=== PATIENT | male | born 1995 | race Caucasian/White ===

== ENCOUNTER → 2021-10-30 11:18 | Outpatient (CLI) | payer OTHER, SELFPAY | PROVIDERS: Visit Provider Nurse Practitioner | DX: Z20.822 Contact with and (suspected) exposure to COVID-19 (principal) | CPT/HCPCS: C9803; U0003; U0005 ==

== ENCOUNTER 2021-11-08 21:42 | Emergency (ER) | payer OTHER, SELFPAY ==
[2021-11-08 21:46] VITALS: BP 158/68; PULSE 99; RESP 20; TEMP 37.8; O2SAT 100; BMI 34.0
[2021-11-08 22:07] VITALS: BP 158/68; PULSE 87; O2SAT 99
--- NOTE | 2021-11-08 22:13 | XR_ITS ---
PROCEDURE INFORMATION: Exam: XR Chest Exam date and time: 11/08/2021 10:13 PM Age: 26 years old Clinical indication: Cough TECHNIQUE: Imaging protocol: XR of the chest. Views: 2 views. COMPARISON: No relevant prior studies available. FINDINGS: Lungs: Unremarkable. No consolidation. Pleural spaces: Unremarkable. No pleural effusion. No pneumothorax. Heart/Mediastinum: Unremarkable. No cardiomegaly. Bones/joints: Unremarkable. IMPRESSION: No acute findings.
[2021-11-08 22:16] LABS: Influenza A, PCR Not Detected (NotDetected); Influenza B, PCR Not Detected (NotDetected)
[2021-11-08 22:19] LABS: Basophils # 0.2 K/mm3 (0-0.2); Basophils % 5.4 % (0.1-2.0); Hematocrit 50.5 % (42.0-52.0); Hemoglobin 16.4 g/dL (14.1-18.0); Lymphocytes # 1.5 K/mm3 (0.7-4.5); Lymphocytes % 36.8 % (10-50); Mean Corpuscular HGB Conc 32.5 g/dL (31.8-35.4); Mean Corpuscular Hemoglobin 31.6 pg (27.0-31.2); Mean Corpuscular Volume 97.4 fl (80-94); Mean Platelet Volume 11.2 fl (7.4-10.4); Monocytes # 0.7 K/mm3 (0.1-1.0); Monocytes % 16.7 % (1.7-9.3); Neutrophils # 1.9 K/mm3 (1.8-7.8); Neutrophils % 46.4 % (37.0-80.0); Platelet Count 107 K/mm3 (142-424); Red Blood Count 5.19 M/mm3 (4.60-6.20); Red Cell Distribution Width 13.7 % (11.5-17.5)
[2021-11-08 22:22] LABS: Alanine Aminotransferase 42 U/L (12-78); Albumin Level 4.8 g/dl (3.5-5.0); Albumin/Globulin Ratio 1.5 (1.1-1.8); Alkaline Phosphatase 61 U/L (38-126); Amylase 67 U/L (30-110); Anion Gap 11.6 mEq/L (5-15); Aspartate Amino Transferase 40 U/L (17-59); Bilirubin,Total 0.5 mg/dl (0.2-1.3); Blood Urea Nitrogen 14 mg/dl (9-20); Calcium 9.2 mg/dl (8.4-10.2); Carbon Dioxide 31 mmol/L (22.0-30.0); Chloride 98 mmol/L (98-107); Creatinine Clearance Estimated 128 mL/min (50-200); Estimated Glomerular Filt Rate 72 ml/min (>60); GFR (African American) 87 ML/MIN (>60); Globulin 3.3 g/dL (1.3-3.2); Glucose 75 mg/dl (74-100); Potassium 3.6 mmoL/L (3.5-5.1); Sodium 137 mmol/L (136-145); Total Protein,Serum 8.1 g/dl (6.3-8.2)
[2021-11-08 22:28] LABS: C-Reactive Protein 4.8 mg/L (0-4)
[2021-11-08 22:30] VITALS: BP 153/88; PULSE 82; O2SAT 96
[2021-11-08 22:40] LABS: Procalcitonin 0.121 ng/mL (0.0-2.0); T4 (Thyroxine) 6.5 ug/dl (5.53-11.0)
--- NOTE | 2021-11-08 22:40 | HMH.EDURI ---
ED Disposition Clinical Impression: COVID-19 Sinusitis Qualifiers: Sinusitis location: unspecified location Chronicity: acute Recurrence: not specified as recurrent Qualified Code(s): J01.90 - Acute sinusitis, unspecified Disposition: Home, Self-Care Condition on Discharge: Good Instructions: DI for Sinusitis, DI for COVID-19 (Suspected or Confirmed ) Additional Instructions: use meds and see pcp and ent for follow up Prescriptions: cephALEXin [cephALEXin 500mg capsule*] 500 mg PO TID #30 cap Transmission Status: Pending to [id number] dexAMETHasone [Decadron] 6 mg PO DAILY #6 tab Transmission Status: Pending to [id number] Referrals: Servando Bennett MD [Primary Care Provider] - - Critical Care Critical Care Time: No Attestation: On 11/08/21, the high probability of a clinically significant, sudden or life threatening deterioration of the following system(s) required my full and direct attention, intervention and personal management. The time I documented below is in addition to time spent performing reported procedures but includes the following listed in this critical care notation. Medical Decision Making - Medical Records Medical records reviewed: Yes: I reviewed the patient's medical records. - Sherwin Inquiry Pt receiving controlled substance: No Vital Signs: 11/08/21 21:46 11/08/21 22:07 11/08/21 22:30 Temperature 100.0 F H Temperature Source Oral Pulse Rate 87 82 Pulse Rate [Apical] 99 H Respiratory Rate 20 Blood Pressure 158/68 H 153/88 H Blood Pressure [Right Arm] 158/68 H Blood Pressure Mean [Right Arm] 98 Blood Pressure Source [Right Arm] Automatic Cuff Blood Pressure Position [Right Arm] Sitting 02 Sat by Pulse Oximetry 100 99 96 Oxygen Delivery Method Room Air Room Air Room Air 11/08/21 23:00 Temperature Temperature Source Pulse Rate 75 Pulse Rate [Apical] Respiratory Rate Blood Pressure 148/87 H Blood Pressure [Right Arm] Blood Pressure Mean [Right Arm] Blood Pressure Source [Right Arm] Blood Pressure Position [Right Arm] 02 Sat by Pulse Oximetry 97 Oxygen Delivery Method Room Air - Lab Data Lab results reviewed: Yes: I reviewed the patient's lab results. Lab Results 11/08/21 21:54: WBC 4.0 L, RBC 5.19, Hgb 16.4, Hct 50.5, MCV 97.4 H, MCH 31.6 H, MCHC 32.5, RDW 13.7, Plt Count 107 L, MPV 11.2 H, Neut % (Auto) 46.4, Lymph % (Auto) 36.8, [place] % (Auto) 16.7 H, Eos % (Auto) 0.0 L, Baso % (Auto) 5.4 H, Neut # (Auto) 1.9, Lymph # (Auto) 1.5, [place] # (Auto) 0.7, Eos # (Auto) 0.0, Baso # (Auto) 0.2, ESR 7 11/08/21 21:54: Sodium 137, Potassium 3.6, Chloride 98, Carbon Dioxide 31 H, Anion Gap 11.6, BUN 14, Creatinine 1.20, Estimated Creat Clear 128, Estimated GFR 72, Est GFR ( Amer) 87, Glucose 75, Calcium 9.2, Total Bilirubin 0.5, AST 40, ALT 42, Alkaline Phosphatase 61, C-Reactive Protein 4.8 H, Total Protein 8.1, Albumin 4.8, Globulin 3.3 H, Albumin/Globulin Ratio 1.5, Amylase 67, Procalcitonin 0.121, TSH 0.94, Thyroxine (T4) 6.5 11/08/21 21:54: SARS-CoV-2 (PCR) Detected A, Influenza A Untype (PCR) Not detected, Influenza Type B (PCR) Not detected Result diagrams: 11/08/21 21:54 11/08/21 21:54 Orders (Tests/Meds): ED MEDICATIONS Generic Name Dose Route Start Last Admin Trade Name Freq PRN Reason Stop Dose Admin Sodium Chloride 1,000 mls @ 999 mls/hr 11/08/21 22:15 11/08/21 23:01 Sod Chlor 0.9% 1000ml Bag IV 11/08/21 23:15 999 mls/hr .Q1H1M YADIRA Administration Discontinued Medications Generic Name Dose Route Start Last Admin Trade Name Freq PRN Reason Stop Dose Admin Acetaminophen 1,000 mg 11/08/21 22:11 11/08/21 23:02 Acetaminophen 500mg Tab PO 11/08/21 22:12 1,000 mg ONCE ONE Administration Ketorolac Tromethamine 30 mg 11/08/21 22:11 11/08/21 23:02 Ketorolac 30mg/Ml Vial IV 11/08/21 22:12 30 mg ONCE ONE Administration Methylprednisolone Sodium Succinate 125 mg 11/08/21 22:4
--- NOTE | 2021-11-08 22:43 | CT_ITS ---
PROCEDURE INFORMATION: Exam: CT Maxillofacial Without Contrast, Sinus Exam date and time: 11/08/2021 10:43 PM Age: 26 years old Clinical indication: Other: Headache, pressure; Additional info: [place] TECHNIQUE: Imaging protocol: CT Maxillofacial without contrast. Focus on the sinuses. Radiation optimization: All CT scans at this facility use at least one of these dose optimization techniques: automated exposure control; mA and/or kV adjustment per patient size (includes targeted exams where dose is matched to clinical indication); or iterative reconstruction. COMPARISON: CT HEAD/BRAIN WO CON 11/08/2021 11:40 PM FINDINGS: Frontal sinuses: Normal. No air-fluid levels. Ethmoid air cells: Normal. No air-fluid levels. Sphenoid sinuses: Mild mucosal thickening in the right sphenoid sinus the. No air-fluid levels. Maxillary sinuses: Mild mucosal thickening. No air-fluid levels. The right ostiomeatal units are occluded. Ostiomeatal units on the left are are patent. Nasal cavity/Septum: Unremarkable. Orbital cavity: Orbits are normal. Globes are unremarkable. Bones/joints: Unremarkable. Soft tissues: Unremarkable. IMPRESSION: Right sphenoid and bilateral maxillary sinus disease.
--- NOTE | 2021-11-08 22:43 | CT_ITS ---
PROCEDURE INFORMATION: Exam: CT Head Without Contrast Exam date and time: 11/08/2021 10:43 PM Age: 26 years old Clinical indication: Walking, difficulty; Additional info: Weakness/gait abn TECHNIQUE: Imaging protocol: Computed tomography of the head without contrast. Radiation optimization: All CT scans at this facility use at least one of these dose optimization techniques: automated exposure control; mA and/or kV adjustment per patient size (includes targeted exams where dose is matched to clinical indication); or iterative reconstruction. COMPARISON: No relevant prior studies available. FINDINGS: Brain: Normal. No hemorrhage. Unremarkable white matter. No mass effect. Cerebral ventricles: No ventriculomegaly. Paranasal sinuses: Mucosal thickening is present in the maxillary sinuses. No fluid levels. Mastoid air cells: Visualized mastoid air cells are well aerated. Bones/joints: Unremarkable. No acute fracture. Soft tissues: Unremarkable. IMPRESSION: No acute intracranial abnormality.
[2021-11-08 22:45] LABS: Erythrocyte Sedimentation Rate 7 mm/hr (0-15)
[2021-11-08 22:52] LABS: Coronavirus 19, PCR Detected (NotDetected)
[2021-11-08 22:54] LABS: Thyroid Stimulating Hormone 0.94 uIU/mL (0.465-4.68)
[2021-11-08 23:00] VITALS: BP 148/87; PULSE 75; O2SAT 97
[2021-11-08 23:30] VITALS: BP 134/76; PULSE 78; O2SAT 95
[2021-11-09] VITALS: BP 144/83; PULSE 72; O2SAT 95
[2021-11-09 00:30] VITALS: BP 129/72; PULSE 75; O2SAT 98
[2021-11-09 00:55] VITALS: BP 145/89; PULSE 77; RESP 16; TEMP 36.8; O2SAT 96
== END 2021-11-09 00:56 | disposition home or self-care (01) ==
PROVIDERS: Emergency Provider Emergency Medicine; PCP Internal Medicine Adolescent Medicine
DX: U07.1 COVID-19 (principal); J01.90 Acute sinusitis, unspecified; F17.210 Nicotine dependence, cigarettes, uncomplicated
CPT/HCPCS: 70450; 70486; 71046; 80053; 82150; 84145; 84436; 84443; 85025; 85651; 86140; 96365; 96375; 99283; C9803; U0003; U0005

== ENCOUNTER → 2022-08-05 15:37 | Outpatient (CLI) | payer SELFPAY | PROVIDERS: PCP Internal Medicine Adolescent Medicine; Visit Provider Nurse Practitioner Family | DX: Z02.4 Encounter for examination for driving license (principal) ==

== ENCOUNTER 2022-12-10 18:22 | Emergency (ER) | payer OTHER, SELFPAY ==
--- NOTE | 2022-12-10 18:46 | EXP.UTC ---
Discharge Plan Disposition Patient Disposition: Home, Self-Care Condition: Good Prescriptions Prescriptions: New amoxicillin [amoxicillin] 500 mg tablet 500 mg PO TID 10 Days Qty: 30 0RF prednisone 10 mg tablet 10 mg PO BID 4 Days Qty: 8 0RF ondansetron 4 mg Tablet,Disintegrating 4 mg PO Q8H PRN (Reason: Nausea) Qty: 12 0RF Referrals Follow up/Referrals: Servando Bennett MD [Primary Care Provider] - See instructions Activity Restrictions/Add. Instructions Additional Instructions/Restrictions: Drink plenty of fluids. Take tylenol or ibuprofen for pain or fever. Take the medications as directed. Follow up with your regular doctor. GO TO THE ER FOR ANY WORSENING SYMPTOMS Clinical Impressions Clinical Impression: Pharyngitis, Acute viral syndrome Stand Alone Forms Stand Alone Forms: Work/School Release Instructions Patient Instructions: DI for Pharyngitis/Tonsillopharyngitis -- Adult Discharge ED Provider: Vince Arzola [facility] General Stated complaint: Fever,body aches,lightheaded Time Seen by Provider: 12/10/22 18:46 History of Present Illness Provider Complaint: He states that for the past 2 days he has had fever, chills, body aches, and a scratchy sore throat. His child was diagnosed with strep throat 3 days ago Related Data Previous Rx's Medication Instructions Recorded amoxicillin 500 mg tablet 500 mg PO TID 10 days #30 tabs 12/10/22 ondansetron 4 mg disintegrating 4 mg PO Q8H PRN Nausea #12 tabs 12/10/22 tablet prednisone 10 mg tablet 10 mg PO BID 4 days #8 tabs 12/10/22 Allergies Allergy/AdvReac Type Severity Reaction Status Date / Time No Known Allergies Allergy Verified 12/10/22 19:05 [facility] Disclaimer: The information contained in this section may have been updated after the patient was seen, as this information can be updated by other users. Social History Smoking Status: Current every day smoker alcohol intake: never current occupational status: employed Travel in the last 8 weeks: None ROS Obtained: Yes All systems reviewed & no additional complaints except as documented Constitutional Constitutional: Reports chills and Reports fever(s) Eyes Eyes: Denies eye discharge ENT Ears, Nose, Mouth, and Throat: Reports as per HPI Cardiovascular Cardiovascular: Denies chest pain Respiratory Respiratory: Denies chest congestion and Reports cough Gastrointestinal Gastrointestingal: Reports nausea; Denies abdominal pain, constipation, cramping, diarrhea or vomiting Musculoskeletal Musculoskeletal: Denies arthralgias Integumentary/Breasts Skin/Breast: Denies rash Neurologic Neurologic: Denies paresthesias Physical Exam General General appearance: alert and in no apparent distress Head Head exam: atraumatic, normocephalic and normal inspection Eye Eye exam: Present normal appearance, PERRL and EOMI ENT ENT exam: Present mucous membranes moist and normal external ear exam Expanded ENT Exam TM/Canal exam: Bilateral TM: erythema and bulging Nose exam: Absent sinus tenderness Mouth exam: Present normal external inspection; Absent drooling Teeth exam: Present normal inspection Throat exam: Present tonsillar erythema, tonsillomegaly and tonsillar exudate Neck Neck exam: Present normal inspection, full ROM and trachea midline; Absent tenderness, meningismus or lymphadenopathy Chest Chest inspection: Present normal inspection and symmetric chest wall rise; Absent tenderness Respiratory Respiratory exam: Present normal lung sounds bilaterally; Absent respiratory distress, wheezes or stridor Cardiovascular Cardiovascular exam: Present regular rate and normal rhythm; Absent systolic murmur or diastolic murmur Abdominal Exam Abdominal exam: Present soft and normal bowel sounds; Absent distention, tenderness, guarding, rebound or rigidity Extremities Exam Extremities exam: Present normal inspecti
[2022-12-10 18:50] VITALS: BP 125/89; PULSE 85; RESP 20; TEMP 37.4; O2SAT 98; BMI 33.4
[2022-12-10 19:00] LABS: UTC Influenza A Antigen Negative (Negative); UTC Influenza B Antigen Negative (Negative)
[2022-12-10 19:43] VITALS: BP 125/89; PULSE 85; RESP 20; TEMP 37.4; O2SAT 98
== END 2022-12-10 19:42 | disposition home or self-care (01) ==
PROVIDERS: Emergency Provider Nurse Practitioner Family; PCP Internal Medicine Adolescent Medicine
DX: J02.9 Acute pharyngitis, unspecified (principal); B34.9 Viral infection, unspecified
CPT/HCPCS: 87804; 99212; 99213; G0463

== ENCOUNTER 2023-09-08 18:31 | Emergency (ER) | payer OTHER, SELFPAY ==
[2023-09-08 18:32] VITALS: BP 143/93; PULSE 77; RESP 17; TEMP 36.8; O2SAT 98; BMI 33.4
--- NOTE | 2023-09-08 19:35 | HMH.EDGENADL ---
Discharge Plan Disposition Patient Disposition: Home, Self-Care Prescriptions Prescriptions: New prednisone 20 mg tablet 40 mg PO BID 5 Days Qty: 20 0RF Discontinued amoxicillin [amoxicillin] 500 mg tablet 500 mg PO TID 10 Days Qty: 30 0RF prednisone 10 mg tablet 10 mg PO BID 4 Days Qty: 8 0RF ondansetron 4 mg Tablet,Disintegrating 4 mg PO Q8H PRN (Reason: Nausea) Qty: 12 0RF Referrals Follow up/Referrals: Mohini Paula [Primary Care Provider] - See instructions Michael Herrera PT [Physical Therapist] - See instructions Activity Restrictions/Add. Instructions Additional Instructions/Restrictions: Steroid every morning for 5 days. Physical therapy information here, call to schedule an appointment. Call your family doctor to establish care for this visit to the emergency department and schedule follow-up within 48 hours to ensure improvement. If you have any worsening of your condition or any other concerning signs or symptoms, return to the emergency department or your primary care doctor for further evaluation. Clinical Impressions Clinical Impression: Thoracic spine pain Instructions Patient Instructions: DI for Low Back Pain Discharge ED Provider: Dakotah Johnson General Adult HPI General Chief complaint: Back Pain/Injury Stated complaint: MIDDLE BACK PAIN Time Seen by Provider: 09/08/23 18:52 Mode of Arrival: Ambulatory Source of Information: Patient Limitations: No Limitations Description of Symptoms (Recalled from ER Triage Doc. by RN): Presents to ED with c/o mid back pain x 2-3 days that radiates around his ribs into his chest. Patient states it hurts worse upon movement. Reports taking 1g Tylenol @1230 with no relief. History of Present Illness HPI narrative: 28-year-old with no medical history presenting with back pain. Patient states that he was grabbing for the faucet in the shower 2 days prior to arrival. He had immediate pain and middle of his back. Radiates anteriorly to his epigastrium. No nausea vomiting, fevers or chills, made worse with changes in position especially twisting and leaning forward. Took 1 g of Tylenol yesterday, did not seem like it helped, so patient has not taken any medication since. No neurovascular deficits. Related Data Previous Rx's Medication Instructions Recorded prednisone 20 mg tablet 40 mg PO BID 5 days #20 tabs 09/08/23 Allergies Allergy/AdvReac Type Severity Reaction Status Date / Time No Known Allergies Allergy Verified 12/10/22 19:05 [facility] Disclaimer: The information contained in this section may have been updated after the patient was seen, as this information can be updated by other users. Social History Smoking Status: Current every day smoker alcohol intake: never current occupational status: employed Travel in the last 8 weeks: None ROS Obtained: Yes All systems reviewed & no additional complaints except as documented Physical Exam General General appearance: alert and in no apparent distress Head Head exam: atraumatic and normocephalic Eye Eye exam: Present normal appearance, PERRL and EOMI ENT ENT exam: Present mucous membranes moist Neck Neck exam: Present normal inspection, full ROM and trachea midline Respiratory Respiratory exam: Absent respiratory distress, wheezes, stridor, accessory muscle use or prolonged expiratory phase Cardiovascular Cardiovascular exam: Present normal rhythm Abdominal Exam Abdominal exam: Present soft; Absent distention, tenderness, guarding, rebound, rigidity or normal bowel sounds Extremities Exam Extremities exam: Absent edema Neurological Exam Neurological exam: Present alert, oriented X3, CN II-XII intact and normal gait; Absent motor sensory deficit Skin Skin exam: Present warm and dry; Absent diaphoresis or erythema Medical Decision Making Medical Records Medical records reviewed: Yes I reviewed the patient'
[2023-09-08 20:08] LABS: Basophils # 0.1 K/mm3 (0-0.2); Basophils % 0.7 % (0.1-2.0); Eosinophils # 0.1 K/mm3 (0.0-0.4); Eosinophils % 0.9 % (0.1-12.0); Hematocrit 48.5 % (42.0-52.0); Hemoglobin 16.5 g/dL (14.1-18.0); Lymphocytes # 2.1 K/mm3 (0.7-4.5); Lymphocytes % 26.4 % (10-50); Mean Corpuscular Hemoglobin 31.1 pg (27.0-31.2); Mean Corpuscular Volume 91.5 fl (80-94); Mean Platelet Volume 10.6 fl (7.4-10.4); Monocytes # 0.6 K/mm3 (0.1-1.0); Monocytes % 6.8 % (1.7-9.3); Neutrophils # 5.3 K/mm3 (1.8-7.8); Neutrophils % 65.2 % (37.0-80.0); Platelet Count 156 K/mm3 (142-424); Red Cell Distribution Width 13.2 % (11.5-17.5); White Blood Count 8.1 K/mm3 (4.8-10.8)
[2023-09-08 20:28] LABS: Chloride 101 mmol/L (98-107); Potassium 3.8 mmoL/L (3.5-5.1); Sodium 139 mmol/L (136-145)
[2023-09-08 20:30] LABS: Alanine Aminotransferase 46 U/L (12-78); Aspartate Amino Transferase 42 U/L (17-59); Blood Urea Nitrogen 19 mg/dl (9-20); Creatinine Clearance Estimated 139 mL/min (50-200); Estimated Glomerular Filt Rate 79 ml/min (>60); GFR (African American) 95 ML/MIN (>60)
[2023-09-08 20:31] LABS: Albumin Level 4.9 g/dl (3.5-5.0); Albumin/Globulin Ratio 1.4 (1.1-1.8); Alkaline Phosphatase 63 U/L (38-126); Anion Gap 13.8 mEq/L (5-15); Bilirubin,Total 0.3 mg/dl (0.2-1.3); Calcium 9.1 mg/dl (8.4-10.2); Carbon Dioxide 28 mmol/L (22.0-30.0); Globulin 3.5 g/dL (1.3-3.2); Glucose 96 mg/dl (74-100); Lipase 68 U/L (23-300); Total Protein,Serum 8.4 g/dl (6.3-8.2)
--- NOTE | 2023-09-08 21:28 | PC.NURSE ---
patient states he wants to know how much longer. advised him that his labs have returned and the md will be in there mumtaz
[2023-09-08 22:35] VITALS: BP 129/92; PULSE 68; RESP 16; TEMP 36.8; O2SAT 96
== END 2023-09-08 22:37 | disposition home or self-care (01) ==
PROVIDERS: Emergency Provider Emergency Medicine; PCP Nurse Practitioner Family
DX: M54.6 Pain in thoracic spine (principal); F17.210 Nicotine dependence, cigarettes, uncomplicated
CPT/HCPCS: 80053; 83690; 85025; 96374; 96375; 99284

== ENCOUNTER 2024-02-09 22:15 | Emergency (ER) | payer OTHER, SELFPAY ==
[2024-02-09 22:16] VITALS: BP 137/87; PULSE 72; RESP 18; TEMP 36.6; O2SAT 99; BMI 33.6
--- NOTE | 2024-02-09 22:27 | PC.NURSE ---
Eye box and magana lamp at bedside.
--- NOTE | 2024-02-09 22:50 | PC.NURSE ---
in room using slit lamp
[2024-02-09] MEDS: ERYTHROMYCIN BASE 1 GM OINT...G. 0.5 GM OP (23:02)
[2024-02-09] MEDS: TETRACAINE 0.5% OPTH SOL 15ML OP (23:02)
[2024-02-09] MEDS: KETOROLAC 30MG/ML VIAL 30 MG IM (23:06)
[2024-02-09 23:10] VITALS: BP 143/78; PULSE 78; RESP 18; TEMP 36.7; O2SAT 98
--- NOTE | 2024-02-09 23:23 | ED_ITS ---
Discharge Plan Disposition Patient Disposition: Home, Self-Care Condition: Good Prescriptions Prescriptions: No Action prednisone 20 mg tablet 40 mg PO BID 5 Days Qty: 20 0RF Referrals Follow up/Referrals: Mohini Paula [Primary Care Provider] - See instructions Activity Restrictions/Add. Instructions Additional Instructions/Restrictions: You were evaluated in the emergency department today. A metallic foreign body was removed from your right eye it is very important that you follow-up with an director of marketing [employer] over the next 24 to 48 hours, as you had a rust ring on your eye and it is important for them to monitor it to make sure that it does not cause any damage to your cornea. Use the antibiotic ointment provided to every 4-6 hours while awake for the next 5 days. Take Tylenol and ibuprofen at home as needed for pain. Return to the emergency department for new or worsening symptoms. Clinical Impressions Clinical Impression: Corneal rust ring of right eye, Metal foreign body in eye region Stand Alone Forms Stand Alone Forms: Work/School Release Instructions Patient Instructions: DI for Corneal Foreign Body-Eye Discharge ED Provider: Lisa Baez General Adult HPI General Chief complaint: Eye Problems Stated complaint: FB in RT eye Time Seen by Provider: 02/09/24 22:28 Mode of Arrival: Ambulatory Source of Information: Patient Limitations: No Limitations Description of Symptoms (Recalled from ER Triage Doc. by RN): Patient was drilling metal under vehicle on friday and felt something in his eye. He flushed his eye at this time and utilized a magnet to try and remove any metal fragments that he thought may have been there. He states that his eye appeared to be improving until today. He has increased redness and swelling. Patient denies vision changes. History of Present Illness HPI narrative: This patient is a 28-year-old male who denies any significant past medical history presenting to the emergency department for evaluation with concern for foreign body sensation in his right eye. He reports that on Tuesday 02/06 he was drilling under a vehicle when he felt a foreign body go into his right eye. He flushed his eye at the time and thinks that he got the foreign body out, but he persistently has had foreign body sensation since then. It acutely worsened today and he had a lot of pain and burning in his right eye. He denies any significant visual change, photophobia, or other concerns. He thinks that he is up-to-date on tetanus, however advised I would update it. He does not wear contact lenses or wear glasses. Related Data Previous Rx's Medication Instructions Recorded prednisone 20 mg tablet 40 mg (2 x 20 mg) PO BID 5 days 09/08/23 #20 tabs Allergies Allergy/AdvReac Type Severity Reaction Status Date / Time No Known Allergies Allergy Verified 12/10/22 19:05 [facility] Disclaimer: The information contained in this section may have been updated after the patient was seen, as this information can be updated by other users. Social History Smoking Status: Never smoker alcohol intake: never current occupational status: employed Travel in the last 8 weeks: None ROS Obtained: Yes All systems reviewed & no additional complaints except as documented Physical Exam General General appearance: alert and in no apparent distress Head Head exam: atraumatic and normocephalic Eye Eye exam: Present PERRL and EOMI Expanded Eye Exam Sclera/Conjunctival: right: injection Both Eyes Image: 2 1. Metallic foreign body 2. Corneal abrasion IOP (R) in mmH Comment: metallic foreign body noted. Corneal abrasion without significant ulceration. ENT ENT exam: Present normal exam, normal oropharynx, mucous membranes moist and normal external ear exam Neck Neck exam: Present normal inspection, full ROM and trachea midline; Absent tenderness Chest Chest inspection: Present normal inspection and symmetric chest wall rise; Absent tenderness Respiratory Respiratory exam: Present normal lung sounds bilaterally; Absent respiratory distress, wheezes, stridor or accessory muscle use Cardiovascular Cardiovascular exam: Present regular rate and normal rhythm Abdominal Exam Abdominal exam: Present soft; Absent distention, tenderness or guarding Extremities Exam Extremities exam: Present normal inspection, full ROM and normal capillary refill; Absent tenderness or edema Back Exam Back exam: Present normal inspection and full ROM; Absent tenderness Neurological Exam Neurological exam: Present alert, oriented X3, CN II-XII intact and normal gait; Absent motor sensory deficit Psychiatric Psychiatric exam: Present normal affect and normal mood Skin Skin exam: Present warm and dry Medical Decision Making Medical Records Medical records reviewed: Yes I reviewed the patient's medical records. Sherwin Inquiry Pt receiving controlled substance: No Vital Signs: 02/09/24 22:16 02/09/24 23:10 Temperature 97.8 F 98.0 F Temperature Source Oral Oral Pulse Rate 78 Pulse Rate [Left Radial] 72 Respiratory Rate 18 18 Blood Pressure 143/78 H Blood Pressure [Right Arm] 137/87 Blood Pressure Mean [Right Arm] 103 02 Sat by Pulse Oximetry 99 Oxygen Delivery Method Room Air Room Air Lab Data Lab results reviewed: Yes I reviewed the patient's lab results. Orders (Tests/Meds): ED MEDICATIONS Discontinued Medications Generic Name Dose Route Start Last Admin Trade Name Jade PRN Reason Stop Dose Admin Erythromycin 0.5 gm 02/09/24 23:01 02/09/24 23:02 Erythromycin Base 1 Gm Oint...G. OP 02/09/24 23:02 0.5 gm ONCE ONE Administration Ketorolac Tromethamine 30 mg 02/09/24 22:43 02/09/24 23:06 Ketorolac 30mg/Ml Vial IM 02/09/24 22:44 30 mg ONCE ONE Administration Tetanus/Reduced Diphtheria/Acell Pertussis 0.5 ml 02/09/24 22:43 02/09/24 23:04 Tet/Diphth/Pert-Adult 0.5ml Syringe IM 02/09/24 22:44 Not Given .ONCE ONE Tetracaine HCl 1 ml 02/09/24 23:01 02/09/24 23:02 Tetracaine 0.5% Opth Donna 15ml OP 02/09/24 23:02 1 ml ONCE ONE Administration Medical Decision Narrative: In summary, this patient is a 28-year-old male presenting to the Emergency Department for evaluation of foreign body in the right eye. Differential diagnoses considered include but are not limited to metallic foreign body, rust ring, corneal abrasion, corneal ulceration. Ruling out the most morbid conditions drove assessment. On exam, the patient has a metallic foreign body in the right eye as well as a corneal abrasion. Ocular pressure is normal. Ocular exam is otherwise reassuring. Tetanus booster was administered, and patient was given IM Toradol for pain control. He underwent fluorescein staining with tetracaine topical anesthetic. He consented to foreign body removal with a 25-gauge needle, which was performed without difficulty. Rust ring was left residually, and attempt to remove it were unsuccessful. Patient did not have any significant complication such as corneal perforation or other concern. He did have symptomatic improvement after removal of foreign body. He was treated with topical antibiotic ointment, erythromycin. He was given tubes to go home with. Advised that he follow-up with an director of marketing [employer] over the next 24 hours for reassessment of the rust ring and potential removal in clinic. He was given strict return precautions, instructions for close a patient follow-up, and he was discharged in stable condition after all questions were answered and after successful foreign body removal Procedures Risk/Benefits of Procedure(s) Were Explained: Yes Eye Exam/FB Removal Location: eye (R) Topical anesthetic used: tetracaine Fluorescein Stick(s) used: Yes Time Out performed: Yes Procedure performed under: direct visualization with magnification Foreign body: metal Technique: cotton tip swab and needle Post-procedure medication: ophthalmic antibiotic Patient tolerated procedure: well Complications: residual rust ring and other (Patient was irrigated. Patient tolerated the procedure well but has a very small residual rust ring.) Critical Care Critical Care Time Critical Care Time: No
== END 2024-02-09 23:26 | disposition home or self-care (01) ==
PROVIDERS: Emergency Provider Emergency Medicine; PCP Nurse Practitioner Family
DX: H16.021 Ring corneal ulcer, right eye (principal); T15.01XA Foreign body in cornea, right eye, initial encounter; W44.E9XA Other non-magnetic metal objects entering into or through a natural orifice, initial encounter; Z23 Encounter for immunization
CPT/HCPCS: 65205; 90471; 96372; 99283

== ENCOUNTER 2024-11-26 09:43 | Emergency (ER) | payer OTHER, SELFPAY ==
[2024-11-26 09:45] VITALS: BP 151/78; PULSE 81; RESP 19; TEMP 36.9; O2SAT 99; BMI 34.0
[2024-11-26 10:15] LABS: Coronavirus 19, PCR Not Detected (NotDetected); Influenza A, PCR Not Detected (NotDetected); Influenza B, PCR Not Detected (NotDetected); Respiratory Syncytial Virus Not Detected (NotDetected)
--- NOTE | 2024-11-26 10:17 | PC.NURSE ---
I rounded on the pt. no new complaints at this time. no needs voiced. call cordero in reach.
--- NOTE | 2024-11-26 10:18 | ED_ITS ---
Discharge Plan Disposition Patient Disposition: Home, Self-Care Condition: Good Prescriptions Prescriptions: No Action No Known Home Medications Referrals Follow up/Referrals: Provider,Referral, [Primary Care Provider] - See instructions Activity Restrictions/Add. Instructions Additional Instructions/Restrictions: You were evaluated in the ER and are appropriate for discharge at this time. Take Tylenol or ibuprofen if needed for fever, body aches. Do not exceed the recommended dose on the bottle. Drink plenty of water. Eat a small snack each time you take these medications to avoid side effects. Follow-up the results of your viral swab and the patient portal. Follow-up with your primary care doctor for reevaluation in a few days. Return to the ER with new, worsening, or otherwise concerning symptoms. Clinical Impressions Clinical Impression: Upper respiratory infection Instructions Patient Instructions: DI for Acute Bronchitis Print Language Print Language: [place] Discharge ED Provider: Giovanni Hassan Adult HPI General Chief complaint: Upper Respiratory Infection Stated complaint: cough and congestion Time Seen by Provider: 11/26/24 09:54 Mode of Arrival: Ambulatory Source of Information: Patient Limitations: No Limitations Description of Symptoms (Recalled from ER Triage Doc. by RN): pt presents to ED with c/o congestion, drainage. no fevers. symptoms began yesterday. pt does states that other child in house hold tested positive for RSV yesterday. History of Present Illness HPI narrative: 29-year-old male presents to the ER with complaints of cough, congestion, drainage. One of his children tested positive for RSV yesterday. Patient reports no fevers, difficulty breathing, chest pain, nausea, vomiting, diarrhea, or any other associated symptoms. Patient denies taking any medications for his symptoms. He has no other concerns at this time. Related Data Home Medications ?Medication ?Instructions ?Recorded ?Confirmed No Known Home Medications 11/26/24 11/26/24 Allergies Allergy/AdvReac Type Severity Reaction Status Date / Time No Known Allergies Allergy Verified 11/26/24 10:19 [facility] Disclaimer: The information contained in this section may have been updated after the patient was seen, as this information can be updated by other users. Social History Smoking Status: Current some day smoker alcohol intake: never current occupational status: employed Travel in the last 8 weeks: None Have you lived/traveled outside [place] in past 30 days?: No Contact w/someone who lives/traveled outside [place] past 30 days?: No Exposure to someone with infectious disease in past 14 days?: No Do you have a fever (greater than 100.4 F or 38 C)?: No Have you tested positive for COVID-19: No Exposed to someone with COVID-19 in past 14 days?: No Do you have a sore throat?: No Do you have a cough?: No Do you have any weakness?: No Do you have any diarrhea?: No Are you experiencing any unusual bleeding?: No Do you have any muscle aches/pain?: No Do you have any abdominal pain?: No Are you experiencing loss of taste or smell?: No Other Medical History Have you received the Flu Vaccine for this season: No Have you received the Pneumonia Vaccine: No ROS Obtained: Yes Systems reviewed as appropriate & no additional complaints except as documented Per HPI Physical Exam General General appearance: alert and in no apparent distress Head Head exam: atraumatic and normocephalic Eye Eye exam: Present PERRL and EOMI ENT ENT exam: Present mucous membranes moist Neck Neck exam: Present normal inspection and full ROM Chest Chest inspection: Present symmetric chest wall rise Respiratory Respiratory exam: Present normal lung sounds bilaterally; Absent respiratory distress, wheezes or stridor Cardiovascular Cardiovascular exam: Present regular rate and normal rhythm Extremities Exam Extremities exam: Present full ROM Neurological Exam Neurological exam: Present alert, oriented X3 and normal gait; Absent motor sensory deficit Psychiatric Psychiatric exam: Present normal affect and normal mood Skin Skin exam: Present warm and dry Medical Decision Making Medical Records Screening: Per USPSTF and CDC recommendations, given the prevalence of disease in our region, it is our hospital?s policy to screen for HIV and viral Hepatitis for all patients aged 18 and over and those with ongoing risk factors. [place] Inquiry Pt receiving controlled substance: No Vital Signs: 11/26/24 09:45 11/26/24 10:21 Temperature 98.5 F 98.9 F Temperature Source Oral Pulse Rate 77 Pulse Rate [Left Radial] 81 Respiratory Rate 19 18 Blood Pressure 139/82 Blood Pressure [Right Arm] 151/78 H Blood Pressure Mean [Right Arm] 102 02 Sat by Pulse Oximetry 99 Oxygen Delivery Method Room Air Orders (Tests/Meds): ORDERS Category Date Time Status Mini Respiratory Panel Stat Lab 11/26/24 10:10 Received Medical Decision Narrative: In summary, this 29-year-old male presents to the emergency department today with concerns of cough, congestion. On initial evaluation patient is hemodynamically stable, afebrile, lungs clear bilaterally, exam is benign. Differential diagnosis includes but is not limited to viral syndrome including COVID, influenza, RSV, among others. I considered pneumonia but have no suspicion for this since patient is afebrile and lungs are clear bilaterally. He has also only had 1 day of symptoms which significantly decreases the likel ihood of pneumonia. I considered performing chest x-ray but given the very low pretest probability and reassuring clinical exam findings, will not perform this at this time.. Based on these concerns, I ordered viral swab. Patient did not require any treatment in the ER. He is appropriate for discharge at this time. 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 He is comfortable with this plan. Patient was given instructions on symptomatic management, follow up instructions, and return precautions for the emergency department. Patient indicated understanding and was discharged in stable condition. Critical Care Critical Care Time Critical Care Time: No
[2024-11-26 10:21] VITALS: BP 139/82; PULSE 77; RESP 18; TEMP 37.2; O2SAT 100
[2024-11-26 11:38] LABS: Human Rhinovirus Detected (NotDetected)
== END 2024-11-26 10:24 | disposition home or self-care (01) ==
PROVIDERS: Emergency Provider Emergency Medicine
DX: J06.9 Acute upper respiratory infection, unspecified (principal); R09.81 Nasal congestion; R05.9 Cough, unspecified; J34.89 Other specified disorders of nose and nasal sinuses; Z20.828 Contact with and (suspected) exposure to other viral communicable diseases; Z72.0 Tobacco use
CPT/HCPCS: 87631; 99283